=== PATIENT | male | born 1985 ===

== ENCOUNTER 2020-08-15 12:21 | Emergency (ER) | payer SELFPAY ==
[2020-08-15 12:37] VITALS: BP 130/68
--- NOTE | 2020-08-15 12:40 | Event Note ---
ED Screening Note Date of service: 08/15/20 Time: 12:38 ED Screening Note: 35-year-old immunocompetent male patient presents to emergency department complaints of nontraumatic pain/swelling/redness to his left fifth toe starting yesterday. No history of diabetes. No history of injury. Patient attempted to "squeeze" the affected tissue himself with limited relief. General: Awake, appropriately interactive, no acute distress. Neck: Supple. Full range of motion intact. Cardiovascular: Normal peripheral perfusion. Pulmonary: No respiratory distress. Patient is speaking normally without use of accessory muscles. Skin: Significant swelling to the left fifth toe with open wound noted to the dorsal surface. No active bleeding or drainage. Distal neurovascular motor/sensory function intact. Neurological: No facial asymmetry. Speech is clear. Follows commands. Patient is alert and oriented. Musculoskeletal: Moves all four extremities spontaneously with normal range of motion. Psych: Cooperative. Appropriate mood and affect. I have greeted and performed a focused rapid initial assessment of this patient. A comprehensive ED assessment and evaluation of the patient, analysis of all test results, and completion of the medical decision-making process will be conducted by additional ED providers. This initial assessment/diagnostic orders/clinical plan/treatment(s) is/are subject to change based on patients health status, clinical progression and re-assessment. Further treatment and workup at subsequent clinical provider's discretion. Patient/guardian urged not to elope from the ED as their condition may be serious if not clinically assessed and managed.
--- NOTE | 2020-08-15 13:09 | XRay Report ---
Left toes 3 views INDICATION: Pain and swelling fifth toe FINDINGS: MTP joints and IP joints appear normal. No displaced fracture is identified. Mild swelling throughout the fifth toe. Patient's pain persists CT or MRI could be performed. Signer Name: Myles Hall MD Signed: 08/15/2020 1:05 PM Workstation Name: [id number]
--- NOTE | 2020-08-15 14:48 | Emergency Department Report ---
ED Lower Extremity HPI - General Chief Complaint: Extremity Injury, Lower Stated Complaint: TOE PAIN Time Seen by Provider: 08/15/20 14:20 Source: patient Mode of arrival: Ambulatory Limitations: No Limitations - History of Present Illness Initial Comments: 35-year-old male with no significant past history presents to the ER today with complaints of a wound to his left fifth toe. Patient states that after he took his good work boots off yesterday his left fifth toe was painful, and it felt like there was fluid underneath his toenail of the left fifth toe. He states that he stuck a needle in the toenail and when he did the toenail came off. He states that after removing the toenail the pain improved. 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 He now has a wound to the left fifth toe and states that he came in because he was concerned for possible infection. Complaint: other (left 5th toenail fell off) -: Sudden (yesterday) - Related Data Previous Rx's Medication Instructions Recorded Last Taken Type Bacitracin Zinc/Polymyxin B 1 applic TP TID #60 oint...g. 08/15/20 Unknown Rx [Double Antibiotic Ointment] Allergies Allergy/AdvReac Type Severity Reaction Status Date / Time No Known Allergies Allergy Unverified 08/15/20 12:33 ED Review of Systems ROS: Stated complaint: TOE PAIN Other details as noted in HPI Comment: All other systems reviewed and negative Constitutional: denies: chills, fever Eyes: as per HPI. denies: eye discharge, vision change ENT: denies: ear pain, throat pain, dental pain, hearing loss, epistaxis, congestion Respiratory: denies: cough, shortness of breath, SOB with exertion, SOB at rest, stridor, wheezing Cardiovascular: denies: chest pain, palpitations, dyspnea on exertion, edema, syncope, paroxysmal nocturnal dyspnea, other Gastrointestinal: denies: abdominal pain, nausea, diarrhea Genitourinary: denies: urgency, dysuria, frequency, hematuria, discharge Musculoskeletal: joint swelling, other (Left fifth toe pain; left fifth toenail injury) ED Past Medical Hx - Past Medical History Previous Medical History?: No - Surgical History Past Surgical History?: No - Social History Smoking Status: Never Smoker Substance Use Type: None - Medications Home Medications: Home Medications Medication Instructions Recorded Confirmed Last Taken Type Bacitracin Zinc/Polymyxin B 1 applic TP TID #60 oint...g. 08/15/20 Unknown Rx [Double Antibiotic Ointment] ED Physical Exam - General Limitations: No Limitations General appearance: alert, in no apparent distress - Respiratory Respiratory exam: Present: normal lung sounds bilaterally. Absent: respiratory distress - Cardiovascular Cardiovascular Exam: Present: regular rate, normal rhythm, normal heart sounds - Extremities Exam Extremities exam: Present: normal capillary refill, other (Complete avulsion noted to the toenail of the left fifth toe. Residual superficial ulceration noted at the nailbed; no apparent signs of infection at this time. Minimal tenderness to palpation. Cap refill is normal. Range of motion of the toes normal.) - Neurological Exam Neurological exam: Present: alert, oriented X3, CN II-XII intact, normal gait - Psychiatric Psychiatric exam: Present: normal affect, normal mood - Skin Skin exam: Present: intact ED Course Vital Signs 08/15/20 12:35 Temperature 98.2 F Pulse Rate 84 Respiratory 18 Rate Blood Pressure 130/68 O2 Sat by Pulse 100 Oximetry ED Lower Extremity MDM - Medical Decision Making PE show complete avulsion of left great toe with residual superficial ulcerated area at nail bed. Xray shows nothing acute. No apparent signs of infection/gangrene. At this time patient just needs instructions on proper wound care. Informed him that the nail may not grow back. Recommend close follow-up with the elevator adjuster/college football coach given on his discharge instruction. Patient well appearing, not toxic and not in any distress. he is neurologically intact with normal gait. Discussed dx and tx plan with patient. Patient stable a time of d/c. Critical care attestation.: If time is entered above; I have spent that time in minutes in the direct care of this critically ill patient, excluding procedure time. ED Disposition Clinical Impression: Nail avulsion of toe, Toe ulcer Disposition: - TO HOME OR SELFCARE Is pt being admited?: No Does the pt Need Aspirin: No Condition: Stable Instructions: Nail Avulsion, Wound Care, Adult Additional Instructions: Keep area clean with soap and water. Dry well after each cleaning and apply thin layer of the bacitracin ointment and cover. Try not to where tight shoes. Follow up with elevator adjuster/college football coach next week for recheck. Return to ED if worse. Prescriptions: Bacitracin Zinc/Polymyxin B [Double Antibiotic Ointment] 1 applic TP TID #60 oint...g. Referrals: KENNETH ATKINSON DPM [Staff Physician] - 3-5 Days Forms: Work/School Release Form(ED) Time of Disposition: 15:19
[2020-08-15] MEDS ORDERED: NEOMY 3.5 MG/BACIT 400 UNITS/POLY B 5000 UNITS/GM OINT PACKET TP ONE (14:55)
== END 2020-08-15 15:25 | disposition home or self-care (01) ==
LOC: ED 12:21
DX: S91.205A Unspecified open wound of left lesser toe(s) with damage to nail, initial encounter (principal); L97.529 Non-pressure chronic ulcer of other part of left foot with unspecified severity; Z79.899 Other long term (current) drug therapy; X50.9XXA Other and unspecified overexertion or strenuous movements or postures, initial encounter; Y93.89 Activity, other specified; Y92.89 Other specified places as the place of occurrence of the external cause; Y99.8 Other external cause status
CPT/HCPCS: 73660; 99283; A6250